=== PATIENT | female | born 1955 | race Two or more races ===

== ENCOUNTER 2018-11-03 07:41 | Day surgery (SDC) | payer OTHER ==
[2018-11-03] VITALS (7 sets, daily range): BP systolic 122–135; BP diastolic 62–75
[~2018-11-03] VITALS: Ht 165.1 cm; Wt 59.0 kg
--- NOTE | 2018-11-03 07:07 | Anethesia Preoperative Eval ---
Anesthesia Pre-op PMH/ROS General Date of Evaluation: Nov 03, 2018 Time of Evaluation: 07:04 Anesthesiologist: samira ASA Score: ASA 3 Mallampati Score Class I : Soft palate, uvula, fauces, pillars visible Class II: Soft palate, uvula, fauces visible Class III: Soft palate, base of uvula visible Class IV: Only hard plate visible Mallampati Classification: Class II Surgeon: luis alfredo Diagnosis: gerd, abdominal pain Surgical Procedure: egd Anesthesia History: none Social History: smoking - nonsmoker Family History: no anesthesia problems Allergies: Coded Allergies: OPIOIDS - MORPHINE ANALOGUES (Verified Adverse Reaction, Severe, Generalized itching , 11/02/18) Medications: see eMAR Patient NPO?: Yes Past Medical History Cardiovascular: Reports: valve dz, other - hypercholesterolemia Gastrointestinal/Genitourinary: Reports: GERD, other - lap rocael, liver disease Hematology/Immune: Reports: other - breast cancer Musculoskeletal/Integumentary: Reports: OA Anesthesia Pre-op Phys. Exam Physician Exam Last Vital Signs Date Time Temp Pulse Resp B/P (MAP) Pulse Ox O2 Delivery O2 Flow Rate FiO2 11/03/18 08:21 Room Air Constitutional: NAD Neurologic: CN 2-12 intact Cardiovascular: RRR Respiratory: CTA Gastrointestinal: S/NT/ND Airway Exam Mallampati Score: Class II MO: full Neck: flexible TMD: 2fb ROM: full Anesthesia Pre-op A/P Risk Assessment & Plan Assessment: asa3 Plan: mac Status Change Before Surgery: No Pre-Antibiotics Drug: Sara Wen MD Nov 03, 2018 07:07
[~2018-11-03 07:41] MED LIST: Atropine Inj 1mg/10ml Syr IV PRN; DiphenhydrAMINE 50mg/ml Inj IVP PRN; KLONOPIN1 MG ORAL; Ketorolac 30mg Inj IV PRN; LR 1000ml 1,000 ML IVLG SCH; Midazolam 2mg/2ml Inj IVP PRN; PAMELOR25 MG ORAL
[2018-11-03] MEDS ORDERED: REGULOID ORAL (08:28)
[2018-11-03] MEDS ORDERED: ACID GONE ANTA355 M1 ORAL (08:28)
[2018-11-03] MEDS ORDERED: LEVSIN-SL0.125 MG SL (08:28)
[2018-11-03] MEDS ORDERED: OMEPRAZOLE40 M1 ORAL (08:28)
--- NOTE | 2018-11-03 08:29 | Short Stay Surgery H&P ---
History of Present Illness History of Present Illness Chief Complaint Abdominal pains and GERDS. KITA Correa is a 63 year old female who was admitted on for Abdominal Pain, Gerd Patient History Allergies: Coded Allergies: OPIOIDS - MORPHINE ANALOGUES (Verified Adverse Reaction, Severe, Generalized itching , 11/02/18) PAST MEDICAL HISTORY: (1) Diverticulitis (2) Hepatitis (3) Breast cancer (4) Hypertension (5) Hyperlipidemia (6) History of cholecystectomy Medication History Scheduled Clonazepam* (Klonopin*), 2 MG ORAL QHS, (Reported) Nortriptyline Hcl* (Pamelor*), 25 MG ORAL QHS, (Reported) Review of Systems Cardiovascular: Reports: no symptoms Respiratory: Reports: no symptoms Skeletal: Reports: trauma Gastrointestinal: Reports: gastro esophageal reflux disease Genitourinary: Reports: no symptoms Neurologic: Reports: no symptoms Endocrine: Reports: no symptoms Hematologic: Reports: no symptoms Physical Exam Skin: normal HENT: normal Heart: normal Lungs: normal Abdomen: abnormal Extremities: normal Genitourinary: normal Plan Plan of Care Upper GI endoscopy and biopsy. Preop Interventions None. Summary of Findings See the reports Attestation Are the patient's medical conditions optimized for surgery? Attestation Response: yes Joy Live MD Nov 03, 2018 08:29
[2018-11-03] MEDS ORDERED: Lidocaine 1% MPF 10mg/ml 5ml ONE (08:30)
[2018-11-03] MEDS ORDERED: DiphenhydrAMINE 50mg/ml Inj ONE (08:30)
[2018-11-03] MEDS ORDERED: LR 1000ml ONE (08:30)
[2018-11-03] MEDS ORDERED: Propofol 200mg/20ml IV ONE (08:30)
--- NOTE | 2018-11-03 08:30 | Pre-Procedure Note/Attestation ---
Pre-Procedure Note/Attestation Complete Prior to Procedure Planned Procedure: left Procedure Narrative: Examination of the upper GI tract via endoscopy Indications for Procedure Pre-Operative Diagnosis: R/O Peptic Ulcer/gastritis Attestation I attest that I discussed the nature of the procedure; its benefits; risks and complications; and alternatives (and the risks and benefits of such alternatives ), prior to the procedure, with the patient (or the patient's legal wireless sales representative). I attest that, if there was a reasonable possibility of needing a blood transfusion, the patient (or the patient's legal wireless sales representative) was given the [facility] standardized written summary, pursuant to the [place] Blood Safety Act ([place] Health and Safety Code # 1645, as amended). I attest that I re-evaluated the patient just prior to the surgery and that there has been no change in the patient's H&P, except as documented below: Joy Live MD Nov 03, 2018 08:30
--- NOTE | 2018-11-03 08:58 | Endoscopy Procedure Note ---
Endoscopy Procedure Note General Indication for Procedure: Abdominal pains and heartburn Procedures Performed: EGD - Mild gastritis with some bile in the stomach noted. Biopsies obtained from antrum and gastric body. Specimen: yes Pt Tolerated Procedure Well: Yes Estimated Blood Loss: none Anesthesia Anesthesiologist: Dr. Sierra Anesthesia: moderate sedation Medications Medication Given: see anesthesia record Inserted Devices Implant(s) used?: No Quality Quality of Bowel Preparation: Excellent Was there any complications?: No GI Core Measures 50 yrs or older w/o bx or poly: Not Applicable 10yrs. F/U not recommended: Not Applicable If not recommended, why?: Med reason:<3 yrs.: System Reason:<3 yrs.: Joy Live MD Nov 03, 2018 08:58
--- NOTE | 2018-11-03 08:59 | Discharge Instructions ---
Discharge Instructions Discharge Instructions Follow up with: Visit the doctor after two weeks in the office For Congestive Heart Failure Reminder Report to your physician any weight gain of 5 pounds or more in one week. Joy Live MD Nov 03, 2018 08:59
--- NOTE | 2018-11-03 09:19 | Immediate Post-Op Evaluation ---
Immediate Post-Op Evalulation Immediate Post-Op Evalulation Procedure: egd w/bx Date of Evaluation: Nov 03, 2018 Time of Evaluation: 09:19 IV Fluids: 200ml lr Blood Products: none Estimated Blood Loss: negligible Blood Pressure Systolic: 135 Blood Pressure Diastolic: 74 Pulse Rate: 84 Respiratory Rate: 18 O2 Sat by Pulse Oximetry: 100 Temperature (Fahrenheit): 97.4 Pain Score (1-10): 0 Nausea: No Vomiting: No Complications none Patient Status: awake, reacts, patent Hydration Status: adequate Drug: Sara Wen MD Nov 03, 2018 09:19
--- NOTE | 2018-11-03 09:21 | 48 Hour Post Anesthesia Eval ---
Post Anesthesia Evaluation Procedure: egd w/bx Date of Evaluation: Nov 03, 2018 Time of Evaluation: 09:21 Blood Pressure Systolic: 135 0: 81 Pulse Rate: 82 Respiratory Rate: 18 Temperature (Fahrenheit): 97.4 O2 Sat by Pulse Oximetry: 99 Airway: patent Nausea: No Vomiting: No Pain Intensity: 0 Hydration Status: adequate Cardiopulmonary Status: stable Mental Status/LOC: patient returned to baseline Post-Anesthesia Complications: none Follow-up care needed: N/A Sara Haider MD Nov 03, 2018 09:21
--- NOTE | 2018-11-03 19:15 | Operative Note - Dictated ---
DATE OF OPERATION: 11/03/2018 SURGEON: Joy Live M.D. PROCEDURE: Esophagogastroduodenoscopy with biopsy. PREOPERATIVE DIAGNOSES: Abdominal pain and history of heartburn. POSTOPERATIVE DIAGNOSIS: Evidence of mild gastritis and bile in the stomach consistent with duodenal gastric bile reflux. Biopsies were taken from the antrum and gastric body. MEDICATION USED: Per Dr. Sierra, anesthesiologist. INSTRUMENT: GIF Olympus upper GI video endoscope. DESCRIPTION OF PROCEDURE: The patient after arriving in the endoscopy unit, was told about risks and benefits of the procedure, which she accepted and signed informed consent. She was then put on the left lateral decubitus position. After adequate IV sedation, the scope was gently passed through the cricopharyngeal area, was lodged in to the upper esophagus, and gradually advanced towards gastroesophageal junction. The entire length of the esophagus looked normal. No evidence of any inflammatory process, ulceration, or pathology found. The gastroesophageal junction was also normal without any hiatal hernia or Garcia's. At this time, the scope was advanced into the stomach. Gastric cavity was distended with some insufflation of the air. Examination revealed evidence of moderate amount of bile collected in the body of the stomach consistent with duodenal gastric bile reflux. There was underlying minimal inflammatory process particularly noted in the antrum consistent with mild gastritis, but there was no ulcers, tumors, polyps, etc. No strictures noted. A retroflexion maneuver was applied and the area of the gastroesophageal junction was examined in a closer fashion, which basically revealed no major pathology. Finally, one random biopsy from gastric body and the other one from antrum was obtained and subsequently the scope was passed through a normal looking pylorus. First and second portion of duodenum were found to be completely normal without any pathology. Finally, the scope was pulled out and the procedure was terminated. The patient tolerated the procedure well and left the endoscopy room in a good condition. Joy Live M.D. DR: HARSH JOB#: [id number] CC:
--- NOTE | 2018-11-03 20:15 | Pre-op HX & Phy Repo 2 SIG ---
DATE OF ADMISSION: 11/03/2018 HISTORY OF PRESENT ILLNESS: The patient is a 63-year-old female, who is being seen prior to undergoing the procedure of upper GI endoscopy for which she has been scheduled to receive for evaluation of her GI symptoms that she has suffered subsequent to her work injury. The patient reports that she is experiencing pain and discomfort over the upper part of the abdomen as well as different section of the abdomen as well, that they are recurring on intermittent basis, but mostly significantly felt over the epigastric area, which is aggravated mostly after consumption of food and especially spicy ones. She has had history of gastroesophageal reflux, for which she has also been prescribed medication such as omeprazole that she is taking. The patient reported to me that she was injured at job site while she was working as a [employer] in different 2 places and as such, she was prescribed nonsteroidal anti-inflammatory agents and strong analgesics such as Vicodin product, which gradually gave rise to applicant gastrointestinal symptoms. She denies having hematemesis, melena, or hematochezia. She has had occasional intermittent diarrhea and constipation as well. There has been no great change in her weight, however. The patient has also been followed by private caregivers at [facility] and has received upper and lower GI endoscopic examination, the result of which is not available to me at this point. 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 At this time, she is being evaluated to undergo the procedure for upper GI endoscopy again for the exact diagnosis of her upper GI symptoms as she has been complaining. PAST MEDICAL HISTORY: Diverticulosis and also hepatitis A with breast cancer. She is also known to have had history of abnormal echocardiogram with hyperlipidemia and hypertension. PAST SURGICAL HISTORY: Cholecystectomy and surgery of the right elbow. MEDICATIONS: Currently, is ibuprofen. ALLERGIES: None significant. HABITS: The applicant denies drinking alcohol, but used to smoke cigarettes in the past. REVIEW OF SYSTEMS: Basically history of present illness, otherwise unremarkable as the patient basically complains of abdominal pain and discomfort. PHYSICAL EXAMINATION: GENERAL: Reveals an alert and oriented female, who does not seem to be in any acute distress. VITAL SIGNS: Stable. HEENT: Normocephalic. Pupils are equal in size and reactive to light and accommodation. No visible jaundice. Buccal cavity, tongue midline, well hydrated. No ulcers. NECK: Supple. No JVD, thyromegaly, or adenopathy. CHEST: Clear to auscultation and percussion. No rales or rhonchi. HEART: S1, S2 normal. Regular rhythm. No gallops or murmur. ABDOMEN: Soft, but mildly tender all over the abdomen. There is no hepatosplenomegaly. No palpable mass noted. EXTREMITIES: Unremarkable. CENTRAL NERVOUS SYSTEM: Unremarkable. PRELIMINARY PREOPERATIVE IMPRESSION: 1. Abdominal pain of uncertain etiology, epigastric pain, rule out NSAID-induced gastropathy, peptic ulcer, gastritis, duodenal ulcer, etc. 2. Possible irritable bowel syndrome, aggravated by side effects of medications and significant anxiety. 3. History of diverticulitis. 4. History of breast cancer. 5. History of bodily injury work-related orthopedic diagnosis. 6. Anxiety and depression. RECOMMENDATIONS: The applicant seems to be quite stable at this time to undergo the procedure of upper GI endoscopy for which she has been scheduled and authorized. She understands the risks and benefits and will sign the consent. Said Radha Live DR: HARSH JOB#: [id number] CC:
== END 2018-11-03 10:20 | disposition home or self-care (01) ==
LOC: GAS 07:41
DX: K29.50 Unspecified chronic gastritis without bleeding (principal); Z90.49 Acquired absence of other specified parts of digestive tract; K57.90 Diverticulosis of intestine, part unspecified, without perforation or abscess without bleeding; Z85.3 Personal history of malignant neoplasm of breast; E78.5 Hyperlipidemia, unspecified; I10 Essential (primary) hypertension; F41.9 Anxiety disorder, unspecified; F32.9 Major depressive disorder, single episode, unspecified; M19.90 Unspecified osteoarthritis, unspecified site; Z88.6 Allergy status to analgesic agent
CPT/HCPCS: 94003; 94150